=== PATIENT | male | born 1985 | race American Indian/Alaskan Native ===

== ENCOUNTER 2019-05-21 13:29 | Emergency (ER) | payer OTHER ==
[2019-05-21 13:53] VITALS: BP 161/104
--- NOTE | 2019-05-21 13:55 | Emergency Department Report ---
Chief Complaint: Extremity Injury, Lower Stated Complaint: FOOT/ANKLE PAIN Time Seen by Provider: 05/21/19 13:53 - HPI History of Present Illness: Mr. Bauer presents with ankle sprain left after rolling ankle No indication of fx MSE complete. Referred to orthopedic surgeon as needed - Exam Vital Signs: Vital Signs 05/21/19 13:52 Temperature 97.8 F Pulse Rate 95 H Respiratory 18 Rate Blood Pressure 161/104 O2 Sat by Pulse 96 Oximetry MSE screening note: Focused history and physical exam performed. Due to findings the following was ordered: ED Disposition for MSE Clinical Impression: Encounter for medical screening examination Disposition: MED SCREENING EXAM-LEFT Condition: Stable Referrals: BALTAZAR DASH MD [Staff Physician] - 3-5 Days Forms: Work/School Release Form(ED)
== END 2019-05-21 14:10 | disposition left against medical advice (07) ==
LOC: ED 13:29
DX: M25.572 Pain in left ankle and joints of left foot (principal); Z53.21 Procedure and treatment not carried out due to patient leaving prior to being seen by health care provider
CPT/HCPCS: 99281